=== PATIENT | male | born 1960 | race Caucasian/White ===

== ENCOUNTER 2017-07-24 18:01 | Observation (INO) | payer MEDICAID ==
--- NOTE | 2017-07-24 18:06 | EDPHY ---
H & P Source: Patient Exam Limitations: No limitations - Medical/Surgical History Hx Asthma: No Hx Chronic Respiratory Disease: Yes Hx Diabetes: No Hx Cardiac Disease: No Hx Renal Disease: No Hx Cirrhosis: No Hx Alcoholism: No Hx HIV/AIDS: No Hx Splenectomy or Spleen Trauma: No Other PMH: CHRONIC pain Time Seen by Provider: 07/24/17 18:05 HPI/ROS: HPI: This is a 56-year-old male who presents with Chief Complaint: GI issues Location: Quality: Duration: Signs and Symptoms: no fever, no nausea, no vomiting, no hematemesis, no blood in stool, no abdominal bloating, no diarrhea, no back pain, no urinary symptoms , no testicular/groin pain, no indigestion, no chest pain, no shortness of breath Timing: Severity: Context: Modifying Factors: Comment: ROS: see HPI Constitutional: No fever, no chills, no weight loss Eyes: No blurred vision Respiratory: No shortness of breath, no cough Cardiovascular: No chest pain, no palpitations Gastrointestinal: No nausea, no vomiting, no diarrhea, no hematemesis, no blood in stool Genitourinary: No dysuria, no blood in urine Extremities: No myalgias, no edema Neurologic: No weakness, no numbness Skin: No rashes, no petechiae Hematologic: No bruising, no bleeding MEDICAL/SURGICAL/SOCIAL HISTORY: Medical history: Chronic pain. Does not take any regular medications. Surgical history: Denies Social history: CONSTITUTIONAL: awake and alert, no obvious distress HEENT: Atraumatic and normocephalic, PERRL, EOMI. Tympanic membranes clear. Oropharynx clear, no exudate and moist pink mucosa. Airway patent. No lymphadenopathy. No meningismus. Cardiovascular: Normal S1/S2, regular rate, regular rhythm, without murmur rub or gallop. PULMONARY/CHEST: Symmetrical and nontender. Clear to auscultation bilaterally. Good air movement. No accessory muscle usage. ABDOMEN: Soft, nondistended, nontender, no rebound, no guarding, no peritoneal signs, no masses or organomegaly. No CVAT. EXTREMITIES: 2/2 pulses, strength 5/5, no deformities, no clubbing, no cyanosis or edema. NEUROLOGICAL: no focal neuro deficits. GCS 15. SKIN: Warm and dry, no erythema. no rash. Good capillary refill. ([place]) Constitutional: Initial Vital Signs Heart Rate 53 L 07/24/17 18:06 Respiratory Rate 30 H 07/24/17 18:06 Blood Pressure 139/119 H 07/24/17 18:06 O2 Sat (%) 92 07/24/17 18:06 O2 Delivery Mode Nasal Cannula Allergies/Adverse Reactions: No Known Allergies Allergy (Unverified 07/06/14 13:05) Home Medications: Medication Instructions Recorded Ibuprofen [Motrin (*)] 800 mg PO Q6 #15 tab 07/06/14 Departure - Departure Condition: Good
--- NOTE | 2017-07-24 18:17 | CPEKG ---
Heart Rate: 51 RR Interval: 1176 P-R Interval: 172 QRSD Interval: 92 QT Interval: 452 QTC Interval: 417 P [place]: 65 QRS [place]: 56 T Wave [place]: 31 EKG Severity - BORDERLINE ECG - EKG Impression: SINUS BRADYCARDIA EKG Impression: BORDERLINE INFERIOR Q WAVES Electronically Signed By: Aris Li 24-Jul-2017 20:53:31
--- NOTE | 2017-07-24 18:29 | EDPHY ---
H & P Time Seen by Provider: 07/24/17 18:05 HPI/ROS: Chief complaint. Abdominal pain, chills, vomiting after colonoscopy HPI. 56-year-old male had colonoscopy today. During the colonoscopy the patient started vomiting and having chills. He had near syncope. He was brought over from GI suite. Patient denies chest discomfort or trouble breathing but tells me he is cold. He is vomiting in the emergency department. He tells me he has diffuse abdominal pain. There were some biopsies taken but not electric cautery used during the colonoscopy. Patient tells me he has similar episodes frequently in which he cannot control his temperature. He takes hot showers at this point ROS Constitutional. Chills Eyes. no problems with vision ENT. no sore throat, no nasal drainage Cardiovascular. no chest pain Respiratory. no shortness of breath, no cough Abdominal. Abdominal pain and vomiting . no problems urinating MS. no calf pain/swelling, no neck/back pain, no joint pain Skin. no rash; sweating Lymph. no swollen glands Neuro. Near syncope Past Medical/Surgical History: Chronic pain, possible cyclic vomiting Social History: Single, daily smoker, no alcohol Smoking Status: Current some day smoker Physical Exam: General Appearance: Alert well-developed male moderate distress profusely sweating vital signs significant for heart rate of 53 and blood pressure 139/119 Eyes: Pupils equal and round no pallor or injection. ENT, Mouth: Mucous membranes are moist. Respiratory: There are no retractions, lungs are clear to auscultation. Cardiovascular: Regular rate and rhythm. Gastrointestinal: Abdomen is soft and diffusely tender. Normal bowel sounds Neurological: Awake and alert, sensory and motor exams grossly normal. Skin: Diaphoresis Musculoskeletal: Neck is supple nontender. Extremities symmetrical, full range of motion. Psychiatric: Patient is oriented X 3, there is no agitation. Constitutional: Initial Vital Signs Heart Rate 53 L 07/24/17 18:06 Respiratory Rate 30 H 18 18:06 Blood Pressure 139/119 H 07/24/17 18:06 O2 Sat (%) 92 07/24/17 18:06 O2 Delivery Mode Nasal Cannula O2 (L/minute) 1 Allergies/Adverse Reactions: No Known Allergies Allergy (Unverified 07/06/14 13:05) Home Medications: Medication Instructions Recorded Ibuprofen [Motrin (*)] 800 mg PO Q6 #15 tab 03/30/15 Medical Decision Making - Diagnostics EKG Interpretation: EKG interpreted by me shows sinus bradycardia normal interval and axis. QRS is normal there is no significant ST elevation or depression. No arrhythmia. The rate is 51 Imaging Results: Imaging Impressions Abdomen CT 07/24/17 18:16 Impression: 1. Incidental internal hernia involving small bowel extending underneath the hepatic flexure to the right upper quadrant anteriorly without obstruction. 2. No CT evidence of appendicitis, abscess or bowel obstruction. 3. Incidental umbilical hernia containing omental fat. Findings discussed with Aris Li M.D. at 19:17 hour, 07/24/2017. Chest X-Ray 07/24/17 18:16 Impression: 1. Poor inspiration with compressive changes at the lung bases. Dependent edema is felt to be less likely. Chest x-ray interpreted by me shows poor inspiration. No obvious pneumonia. No evidence for free air CT abdomen and pelvis with IV contrast shows no evidence of perforation. It is reviewed by me and discussed with Dr. Bolivar Procedures: IV normal saline, monitor I-STAT shows a creatinine 1.4 Reglan and Benadryl for nausea vomiting ED Course/Re-evaluation: Serial evaluations patient is stable. He no longer having any nausea or vomiting. He continues to have chills and some sweating. Patient and I discussed imaging and lab results. We discussed treatment plan including recommendation for admission. He expresses understanding and agreement I consulted and discussed the case with Dr. Cowart, gastroenterology who will see the patient in the hospital for consultation I consulted discussed the case with , hospitalist, who agrees to the admission Differential Diagnosis: I suspect the patient has cyclic vomiting syndrome. I considered perforation during the colonoscopy biopsies. I considered acute IN. I considered electrolyte abnormalities. - Data Points Laboratory Results: Laboratory Results 07/24/17 18:29 07/24/17 18:29 07/24/17 07/24/17 07/24/17 18:45 18:33 18:29 WBC RBC Hgb POC Hgb 16.7 gm/dL gm/dL (13.7-17.5) Hct POC Hct 49 % % (40-51) MCV MCH MCHC RDW Plt Count MPV Neut % (Auto) Lymph % (Auto) Trinity % (Auto) Eos % (Auto) Baso % (Auto) Nucleat RBC Rel Count Absolute Neuts (auto) Absolute Lymphs (auto) Absolute Monos (auto) Absolute Eos (auto) Absolute Basos (auto) Absolute Nucleated RBC Immature Gran % Immature Gran # VBG Lactic Acid 1.7 mmol/L mmol/L (0.7-2.1) POC Sodium 141 mEq/L mEq/L (135-145) Sodium 136 mEq/L mEq/L (135-145) POC Potassium 3.8 mEq/L mEq/L (3.3-5.0) Potassium 4.3 mEq/L mEq/L (3.5-5.2) POC Chloride 101 mEq/L mEq/L (97-110) Chloride 101 mEq/L mEq/L (97-110) Carbon Dioxide 24 mEq/l mEq/l (22-31) Anion Gap 11 mEq/L mEq/L (8-16) POC BUN 14 mg/dL mg/dL (7-23) BUN 14 mg/dL mg/dL (7-23) Creatinine 1.2 mg/dL mg/dL (0.7-1.3) POC Creatinine 1.4 mg/dL H mg/dL (0.7-1.3) Estimated GFR > 60 Glucose 117 mg/dL H mg/dL (70-100) POC Glucose 129 mg/dL H mg/dL (70-100) Calcium 9.7 mg/dL mg/dL (8.5-10.4) Troponin I < 0.012 ng/mL ng/mL (0.000-0.034) Lipase 37 IU/L IU/L (23-300) 07/24/17 18:29 WBC 11.52 10^3/uL H 10^3/uL (3.80-9.50) RBC 5.28 10^6/uL 10^6/uL (4.40-6.38) Hgb 16.6 g/dL g/dL (13.7-17.5) POC Hgb Hct 46.5 % % (40.0-51.0) POC Hct MCV 88.1 fL fL (81.5-99.8) MCH 31.4 pg pg (27.9-34.1) MCHC 35.7 g/dL g/dL (32.4-36.7) RDW 12.8 % % (11.5-15.2) Plt Count 296 10^3/uL 10^3/uL (150-400) MPV 10.8 fL fL (8.7-11.7) Neut % (Auto) 79.9 % H % (39.3-74.2) Lymph % (Auto) 12.9 % L % (15.0-45.0) Trinity % (Auto) 6.3 % % (4.5-13.0) Eos % (Auto) 0.3 % L % (0.6-7.6) Baso % (Auto) 0.3 % % (0.3-1.7) Nucleat RBC Rel Count 0.0 % % (0.0-0.2) Absolute Neuts (auto) 9.20 10^3/uL H 10^3/uL (1.70-6.50) Absolute Lymphs (auto) 1.49 10^3/uL 10^3/uL (1.00-3.00) Absolute Monos (auto) 0.73 10^3/uL 10^3/uL (0.30-0.80) Absolute Eos (auto) 0.04 10^3/uL 10^3/uL (0.03-0.40) Absolute Basos (auto) 0.03 10^3/uL 10^3/uL (0.02-0.10) Absolute Nucleated RBC 0.00 10^3/uL 10^3/uL (0-0.01) Immature Gran % 0.3 % % (0.0-1.1) Immature Gran # 0.03 10^3/uL 10^3/uL (0.00-0.10) VBG Lactic Acid POC Sodium Sodium POC Potassium Potassium POC Chloride Chloride Carbon Dioxide Anion Gap POC BUN BUN Creatinine POC Creatinine Estimated GFR Glucose POC Glucose Calcium Troponin I Lipase Medications Given: Discontinued Medications Diphenhydramine HCl (Benadryl Injection) 25 mg IVP EDNOW ONE Stop: 07/24/17 18:44 Last Admin: 07/24/17 19:02 Dose: 25 mg Metoclopramide HCl (Reglan Injection) 10 mg IVP EDNOW ONE Stop: 07/24/17 18:44 Last Admin: 07/24/17 19:02 Dose: 10 mg Point of Care Test Results: 07/24/17 18:33 POC Sodium 141 POC Potassium 3.8 POC Chloride 101 POC BUN 14 POC Creatinine 1.4 H POC Glucose 129 H Departure - Departure Disposition: [facility] Inpatient Acute Clinical Impression: Near syncope Condition: Good
[2017-07-24] MEDS ORDERED: METOCLOPRAMIDE 10 MG/2 ML VIAL IVP ONE (18:43)
[2017-07-24] MEDS ORDERED: IOPAMIDOL (ISOVUE-300) 100 ML BTL ONE (18:49)
[2017-07-24 18:50] LABS: PLATELET COUNT 296 10^3/uL (150-400)
[2017-07-24] MEDS ORDERED: ACETAMINOPHEN 325 MG TAB PO PRN (23:04)
[2017-07-24] MEDS ORDERED: METOCLOPRAMIDE 10 MG/2 ML VIAL IVP PRN (23:04)
[2017-07-24] MEDS ORDERED: NS 1,000 ML IV SCH (23:15)
[2017-07-25] MEDS: SIMETHICONE 80 MG TAB CHEW PO PRN ×3 (00:57→13:45)
--- NOTE | 2017-07-25 01:18 | GHP ---
[f rep st] HISTORY AND PHYSICAL DATE OF ADMISSION: 07/24/2017 SOURCE: Patient provides history, appears reliable. EMR reviewed and case discussed with accepting provider. CHIEF COMPLAINT: Abdominal pain nausea, vomiting, chills and near syncope. HISTORY OF PRESENT ILLNESS: This is a pleasant 56-year-old gentleman with past medical history significant for depression, chronic pain, chronic marijuana use , who presents to the emergency department following colonoscopy after he underwent today. The patient developed some fevers, chills, nausea, vomiting, and near syncopal episode. Patient denies any chest pain or shortness of breath. He had some abdominal distention. He continues to have some cramping diffusely, belching, is passing gas. The patient is reporting since his procedure, sweats, hot chills and wants to take warm shower. The patient denies any recent illnesses. He did complete his prep. He denies any melena, hematochezia, or hematemesis. In the emergency department, patient did undergo CT abdomen and pelvis, which was negative for any evidence of perforation. There was incidental internal hernia without obstruction under the hepatic flexure in the right upper quadrant. No evidence of appendicitis, abscess or bowel obstruction. Incidental umbilical hernia also noted containing omental fat. The patient has continued to have some abdominal cramping, distention, passing gas and belching. He denies any lightheadedness. No further presyncopal episodes. REVIEW OF SYSTEMS: GENERAL: Patient with fevers, chills, sweats as noted above. SKIN: No rashes or sores. ENT: Patient denies any rhinorrhea, congestion, sore throat. EYES: No acute changes in vision or ocular pain. CARDIOVASCULAR: No chest pain or palpitations. RESPIRATORY: No shortness of breath or cough. GI: Abdominal distention, nausea with resolved vomiting, abdominal cramping pain as noted per HPI. : No dysuria or hematuria. MUSCULOSKELETAL: The patient without any complaints of joint pain, myalgias. NEURO: Patient denies any headache. No numbness, tingling. No focal deficits. PSYCH: Patient with history of depression with variable mood but denies any SI or HI. Remainder of review of systems negative except as noted above. ALLERGIES: No known drug allergies. HOME MEDICATIONS: 1. Remeron 50 mg at h.s. 2. Naproxen p.r.n. PAST MEDICAL HISTORY: Significant for chronic pain, depression. Chronic marijuana use. PAST SURGICAL HISTORY: Significant only for colonoscopy on date of admission. FAMILY HISTORY: Father with diabetes type 2. No abdominal or GI issues. SOCIAL HISTORY: The patient denies any use of tobacco, alcohol. He does use marijuana approximately 200-300 mg daily. Last use day prior to arrival for colonoscopy. CODE STATUS: Full at this time. The patient does report he does have a DNR, but desires to be a full code today. PHYSICAL EXAMINATION: VITAL SIGNS: Upon arrival to the emergency department, blood pressure is 139/119, heart rate 53, respiratory rate 30, O2 saturation 92 % on nasal cannula. Current vitals: Blood pressure 162/92, heart rate 58, respiratory rate 22, O2 saturation 99% on room air, temperature 36.6. GENERAL: No acute distress. The patient does have intermittent complaints of cramping in his abdomen. HEAD: Normocephalic, atraumatic. EYES: Extraocular muscles grossly intact. Pupils equal, round. Decreased reactivity to light bilaterally and symmetric. No scleral icterus or conjunctival injection. ENT: Mucous membranes are moist. Dentition intact. No oropharyngeal erythema or exudates. NECK: Supple. Trachea midline. CARDIOVASCULAR: Slightly bradycardic with regular rhythm. No murmurs, rubs, or gallops appreciated. RESPIRATORY: Unlabored breathing except with complaints of cramping episode. Lungs are clear to auscultation bilaterally. No wheezes, rales, or rhonchi appreciated. ABDOMEN: Slightly distended, soft, mildly and diffusely tender to palpation superficially. Hypoactive bowel sounds, but are present in all quadrants. : No suprapubic tenderness to palpation. No Patton catheter in place. MUSCULOSKELETAL: Patient moves all extremities. Strength grossly intact. NEURO: Grossly nonfocal. No facial drooping. PSYCH: The patient slightly anxious, complaining of pain. Otherwise, thought process, content and questions are appropriate. LABORATORY STUDIES: 1. WBC 11.52, H and H is 16.6 and 46.5, MCV of 88.1, platelet count is 296, no bands. 2. Lactic acid is 1.7. 3. Sodium 136, potassium 4.3, chloride is 101, CO2 24, anion gap is 11, creatinine is 1.2, GFR is greater than 60, glucose 117, calcium 9.7. Troponin is negative. Lipase is 37. IMAGING STUDIES: CT abdomen pelvis as noted above in HPI. Chest x-ray image report reviewed also, noting mild compressive changes suspected in the lung bases. No focal consolidations or effusions. EKG reviewed myself, shows sinus bradycardia, borderline inferior Q-waves. QTc is 417. No acute ST changes. ASSESSMENT AND PLAN: Pleasant 56-year-old gentleman with a history of chronic pain, chronic marijuana use and depression who presents to the emergency department today following colonoscopy with complaints of abdominal pain, nausea , vomiting, presyncope, and fevers and chills. 1. Presyncope. The patient is complaining of severe abdominal pain, distention , cramping, likely related to recent colonoscopy. Patient without any evidence of perforation or other acute findings on CT abdomen and pelvis. Supportive care at this time, simethicone as needed. The patient reports he is passing quite a bit of gas and belching. Will try to avoid narcotics. 2. Nausea, vomiting. Patient without any episodes since arrival to the floor. Patient with Zofran, Reglan available as needed. He is tolerating clears at this time and will continue to advance diet as tolerated. 3. Reported fevers, chills, and sweats. The patient has been asking to go for frequent showers. He does take high dose of marijuana on a daily basis. He denies any other illicit drug use and I suspect that he is likely withdrawing. Supportive care at this time. Titrate down if tolerated will be recommended during his hospital stay. 4. Mildly elevated white count, 11.52, likely related to patient's recent colonoscopy, nausea, vomiting. Continue with supportive care. Patient is declining intravenous fluids at this time, but he is tolerating oral hydration quite well. I did ask the patient regarding thyroid function testing plane of intermittent hot and cold sensation. He reports he recently had evaluation in this found to be normal. 5. Elevated blood pressures without history of hypertension-suspect this is likely elevated patient's acute pain. Will try to avoid narcotics at this time secondary to GI symptoms and potential for exacerbation. Hydralazine will be made available for persistent symptoms. 6. Fluid, electrolyte, nutrition. Patient declined intravenous fluid, as above. Electrolytes will be monitored and replaced if needed. Advancing diet as tolerated to regular. 7. Prophylaxis. Sequential compression devices, holding anticoagulation. Ambulation will be encouraged. 8. Code status. At this time, is full per patient. 9. Disposition: The patient has been admitted to observation status on the medical floor. Continue with supportive measures as noted above. Anticipate patient will be able to discharge later in the morning. /[id number]/MODL MTDD
[2017-07-25 04:38] LABS: PLATELET COUNT 279 10^3/uL (150-400)
[2017-07-25] MEDS: ONDANSETRON 4 MG/2 ML VIAL IVP PRN ×2 (09:23→15:25)
[2017-07-25 11:31] VITALS: BP 157/86
--- NOTE | 2017-07-25 14:25 | HOSPPROG ---
Hospitalist Progress Note Assessment/Plan: 6 yo M w post colonoscopy nausea and vomiting, possibility of cannabis induced hyperemesis n/vom: improved ?perf: not seen on colonoscopy dispo: home today Subjective: case d/w Dr Cowart. took a hot shower Objective: Vital Signs Temp Pulse Resp BP Pulse Ox 36.7 C 56 L 17 157/86 H 99 07/25/17 11:29 07/25/17 11:29 07/25/17 11:29 07/25/17 11:29 07/25/17 11:29 Laboratory Results 07/25/17 04:29 07/25/17 04:29 07/24/17 07/25/17 07/26/17 05:59 05:59 05:59 Intake Total 1300 1000 Output Total 600 Balance 700 1000 - Physical Exam Constitutional: no apparent distress, appears nourished Eyes: PERRL, anicteric sclera Ears, Nose, Mouth, Throat: moist mucous membranes, hearing normal, ears appear normal Cardiovascular: regular rate and rhythym, no murmur, rub, or gallop Respiratory: no respiratory distress, no rales or rhonchi Gastrointestinal: normoactive bowel sounds, soft, non-tender abdomen Genitourinary: no bladder fullness, No landeros in urethra Skin: warm, normal color Musculoskeletal: full muscle strength, no muscle tenderness Neurologic: AAOx3, sensation intact bilaterally Psychiatric: interacting appropriately ICD10 Worksheet Patient Problems: Problems Problem Status Onset Near syncope Acute
--- NOTE | 2017-07-25 16:52 | GDS ---
[f rep st] DISCHARGE SUMMARY DISCHARGE DIAGNOSES: 1. Colon polyp, not resected. 2. Nausea and vomiting. 3. Possible cannabis hyperemesis syndrome versus cyclical vomiting. Please see admission history and physical by Dr. Kylah Celis. The patient presented with nausea and vomiting that occurred during colonoscopy. He endorsed that he had taken some THC containing produc ts prior to that. He has had similar presentation of nausea and vomiting in the setting of THC use w hich is for him somewhat frequent, he also takes hot showers during the day. CT was negative for per foration. The patient is feeling well and eating well on the first hospital day and plans for discha rge home. He has outpatient followup with Dr. Johnathan Cowart, who saw him in followup to re-evaluate hi s polyp. He also notes that he was given prescriptions for Protonix, given reflux like symptoms with vomiting, as well as Phenergan for nausea. /[id number]/MODL
[2017-07-25] MEDS ORDERED: MIRTAZAPINE 15 MG TAB PO SCH (21:00)
== END 2017-07-25 16:36 | disposition home or self-care (01) ==
LOC: INTOOBSV 19:31 → F1N 20:49
PROVIDERS: ADMIT Internal Medicine; ATTEND Internal Medicine
DX: R55 Syncope and collapse (principal); R11.2 Nausea with vomiting, unspecified; R10.9 Unspecified abdominal pain; F12.10 Cannabis abuse, uncomplicated; R03.0 Elevated blood-pressure reading, without diagnosis of hypertension; D72.829 Elevated white blood cell count, unspecified; K63.5 Polyp of colon; G89.29 Other chronic pain; F17.210 Nicotine dependence, cigarettes, uncomplicated; K42.9 Umbilical hernia without obstruction or gangrene; F32.9 Major depressive disorder, single episode, unspecified; Z98.890 Other specified postprocedural states
CPT/HCPCS: 71045; 74177; 93005; 96374; 96375; 99285; G0378; 82947-QW; J1200; J2405; J2765; Q9967

== ENCOUNTER → 2017-08-30 | Outpatient (CLI) | payer MEDICAID | LOC: FIMAGING 15:02 | DX: M50.31 Other cervical disc degeneration, high cervical region (principal); M50.321 Other cervical disc degeneration at C4-C5 level; M50.322 Other cervical disc degeneration at C5-C6 level; M50.323 Other cervical disc degeneration at C6-C7 level; M50.33 Other cervical disc degeneration, cervicothoracic region; M12.88 Other specific arthropathies, not elsewhere classified, other specified site; M48.02 Spinal stenosis, cervical region; M99.71 Connective tissue and disc stenosis of intervertebral foramina of cervical region ==

== ENCOUNTER 2018-02-13 07:37 | Day surgery (SDC) | payer MEDICAID ==
[2018-02-13] MEDS ORDERED: LR 1,000 ML IV ONE (07:48)
--- NOTE | 2018-02-13 08:18 | PDANEPAE ---
ANE Past Medical History - Cardiovascular History Hx Hypertension: No Hx Arrhythmias: No Hx Chest Pain: No Hx Coronary Artery / Peripheral Vascular Disease: No Hx CHF / Valvular Disease: No Hx Palpitations: No - Pulmonary History Hx COPD: No Hx Asthma/Reactive Airway Disease: No Hx Recent Upper Respiratory Infection: No Hx Oxygen in Use at Home: No Hx Sleep Apnea: No Sleep Apnea Screening Result - Last Documented: Positive Pulmonary History Comment: UBALDO triggers. states has been told he has early stages of COPD but no treatment or actual diagnosis - Neurologic History Hx Cerebrovascular Accident: No Hx Seizures: No Hx Dementia: No Neurologic History Comment: intermittent numbness to right hand, left side of neck, lower part of head - Endocrine History Hx Diabetes: No Hypothyroid: No Hyperthyroid: No Obesity: no - Renal History Hx Renal Disorders: Yes Renal History Comment: enlarged prostate - Liver History Hx Hepatic Disorders: No - Neurological & Psychiatric Hx Hx Neurological and Psychiatric Disorders: Yes Neurological / Psychiatric History Comment: depression. anxiety. sleep disorder. uses marijuana daily for about 42 years - Cancer History Hx Cancer: No - Congenital Disorder History Hx Congenital Disorders: No - GI History Hx Gastrointestinal Disorders: Yes Gastrointestinal History Comment: GERD. frequent nausea in the AM - Other Health History Other Health History: wears glasses for reading. lower right back tooth missing. eczema with stress. intermittent low back pain - Chronic Pain History Chronic Pain: Yes (low back pain) - Surgical History Prior Surgeries: left ankle surgery. right knee surgery. colonoscopies/EGD's. wisdom tooth extraction ANE Review of Systems Review of Systems: - Exercise capacity METS (RN): 4 METS ANE Patient History - Allergies Allergies/Adverse Reactions: No Known Allergies Allergy (Verified 02/04/18 14:20) - Home Medications Home Medications: Mirtazapine HS 07/24/17 [Last Taken 02/08/18] Ranitidine HCl 02/04/18 [Last Taken 02/11/18] - NPO status NPO Since - Liquids (Date): 02/12/18 NPO Since - Liquids (Time): 00:00 NPO Since - Solids (Date): 02/12/18 NPO Since - Solids (Time): 08:50 - Smoking Hx Smoking Status: Current some day smoker - Family Anes Hx Family Hx Anesthesia Complications: none ANE Labs/Vital Signs - Vital Signs Blood Pressure: 113/79 Heart Rate: 70 Respiratory Rate: 14 O2 Sat (%): 92 Height: 193.04 cm Weight: 99.79 kg ANE Physical Exam - Airway Neck exam: FROM Mallampati Score: Class 1 Mouth exam: normal dental/mouth exam - Pulmonary Pulmonary: no respiratory distress - Cardiovascular Cardiovascular: regular rate and rhythym - ASA Status ASA Status: II ANE Anesthesia Plan Anesthesia Plan: GA with mask
[2018-02-13] MEDS ORDERED: PROPOFOL/EMULSION 500 MG/50 ML BOTTLE IV ONE (08:45)
[2018-02-13] MEDS ORDERED: LIDOCAINE 2% 5 ML SDV ONE (08:46)
[2018-02-13] MEDS ORDERED: ONDANSETRON 4 MG/2 ML VIAL ONE (08:46)
[2018-02-13] MEDS ORDERED: DEXAMETHASONE 4 MG/ML VIAL ONE (08:46)
--- NOTE | 2018-02-13 08:46 | PDGENHP ---
History and Physical - Chief Complaint GERD, hx of polyps - History of Present Illness Healthy 57 y/o with recent colonoscopy where multiple polyps found and exam was incomplete. Also reports 3-4x/week GERD symptoms w/o dysphagia. No weight loss. No blood in stool. History Information - Allergies/Home Medication List Allergies/Adverse Reactions: No Known Allergies Allergy (Verified 02/04/18 14:20) Home Medications: Mirtazapine HS 07/24/17 [Last Taken 02/08/18] Ranitidine HCl 02/04/18 [Last Taken 02/11/18] I have personally reviewed and updated: family history, medical history, social history, surgical history - Past Medical History no pertinent PMH - Surgical History Reports: no pertinent surgical hx - Social History Smoking Status: Current some day smoker Alcohol Use: Occasionally Drug Use: Marijuana Review of Systems Review of Systems: ROS: 10pt was reviewed & negative except for what was stated in HPI & below Physical Exam Physical Exam: Temp Pulse Resp BP Pulse Ox 36.7 C 70 14 113/79 92 02/13/18 08:01 02/13/18 08:17 02/13/18 08:17 02/13/18 08:17 02/13/18 08:17 Constitutional: no apparent distress Eyes: PERRL Ears, Nose, Mouth, Throat: moist mucous membranes Cardiovascular: regular rate and rhythym Respiratory: no respiratory distress Gastrointestinal: normoactive bowel sounds Skin: warm Musculoskeletal: full muscle strength Neurologic: AAOx3 Psychiatric: interacting appropriately Assessment & Plan Assessment: 1. GERD 2. Colon polyp surveillance Plan: 1. EGD 2. Colonoscopy
--- NOTE | 2018-02-13 09:12 | GIREPORT ---
Formerly [facility] Surgical Services - Endoscopy Department Patient Name: Louis Guzman Procedure Date: 02/13/2018 8:50 AM Patient Type: Outpatient Attending MD/ ER Physician: Adri Hazel MD Procedure: Upper GI endoscopy Indications: Epigastric abdominal pain, Functional Dyspepsia, Heartburn Providers: Adri Hazel MD Medicines: Sedation Required Anesthesia Staff Assistance Complications: No immediate complications. Description of Procedure: After obtaining informed consent, the endoscope was passed under direct vision. Throughout the procedure, the patient's blood pressure, pulse, and oxygen saturations were monitored continuously. The Endoscope was intro duced through the mouth, and advanced to the third part of duodenum. The uppe r GI endoscopy was accomplished without difficulty. The patient tolerated th e procedure well. Findings: LA Grade A (one or more mucosal breaks less than 5 mm, not extending be tween tops of 2 mucosal folds) esophagitis with no bleeding was found at the gastroesophageal junction. Biopsies were taken with a cold forceps for histology. Diffuse mild inflammation characterized by congestion (edema) and eryth pedro was found in the entire examined stomach. Biopsies were taken with a co ld forceps for histology. The examined duodenum was normal. Biopsies for histology were taken wit h a cold forceps for evaluation of celiac disease. Estimated Blood Loss: Estimated blood loss: none. Post Op Diagnosis: - LA Grade A reflux esophagitis. Biopsied. - Gastritis. Biopsied. - Normal examined duodenum. Biopsied. Recommendation: - Written discharge instructions were provided to the patient. - The signs and symptoms of potential delayed complications were discus sed with the patient. - Patient has a contact number available for emergencies. - Return to normal activities tomorrow. - Resume previous diet. - Continue present medications. - Use a proton pump inhibitor PO daily. - Await pathology results. Attending Participation: I personally performed the entire procedure. Adri Hazel MD Adri Hazel MD 02/13/2018 9:11:55 AM This report has been signed electronicallyAdri Hazel MD Number of Addenda: 0 Note Initiated On: 02/13/2018 8:50 AM [email or web address]
[2018-02-13] MEDS ORDERED: PROPOFOL 200 MG/20 ML VIAL ONE (09:33)
[2018-02-13] MEDS ORDERED: MIDAZOLAM 2 MG/2 ML VIAL ONE (09:34)
[2018-02-13] MEDS ORDERED: ROCURONIUM 50 MG/5 ML VIAL ONE (09:38)
--- NOTE | 2018-02-13 09:49 | GIREPORT ---
[facility] Surgical Services - Endoscopy Department Patient Name: Louis Guzman Procedure Date: 02/13/2018 8:51 AM Patient Type: Outpatient Attending MD/ ER Physician: Adri Hazel MD Procedure: Colonoscopy Indications: High risk colon cancer surveillance: Personal history of colonic polyps Providers: Adri Hazel MD Medicines: Sedation Required Anesthesia Staff Assistance Complications: No immediate complications. Description of Procedure: After obtaining informed consent, the scope was passed under direct vis ion. Throughout the procedure, the patient's blood pressure, pulse, and oxyg en saturations were monitored continuously. The Colonoscope with irrigatio n channel was introduced through the anus and advanced to the cecum, identified by appendiceal orifice and ileocecal valve. The colonoscopy was performed without difficulty. The patient tolerated the procedure well. The quality of the bowel preparation was good. The ileocecal valve, appendi ceal orifice, and rectum were photographed. Findings: Two sessile polyps were found in the transverse colon. The polyps were 4 to 6 mm in size. These polyps were removed with a cold biopsy forceps. Resection and retrieval were complete. A 10 mm polyp was found in the sigmoid colon. The polyp was semi-pedunculated. The polyp was removed with a hot snare. Resection an d retrieval were complete. The exam was otherwise without abnormality. Estimated Blood Loss: Estimated blood loss: none. Post Op Diagnosis: - Two 4 to 6 mm polyps in the transverse colon, removed with a cold bio psy forceps. Resected and retrieved. - One 10 mm polyp in the sigmoid colon, removed with a hot snare. Resec nany and retrieved. - The examination was otherwise normal. Recommendation: - Written discharge instructions were provided to the patient. - The signs and symptoms of potential delayed complications were discus sed with the patient. - Patient has a contact number available for emergencies. - Return to normal activities tomorrow. - Resume previous diet. - Continue present medications. - Await pathology results. - Repeat colonoscopy for surveillance based on pathology results. Adri Hazel MD Adri Hazel MD 02/13/2018 9:49:30 AM This report has been signed electronicallyAdri Haezl MD Number of Addenda: 0 Note Initiated On: 02/13/2018 8:51 AM Total Procedure Duration Time 0 hours 32 minutes 55 seconds [email or web address]
[2018-02-13] MEDS ORDERED: SUGAMMADEX SODIUM 200 MG/2 ML VIAL IVP ONE (09:53)
[2018-02-13] MEDS ORDERED: NALOXONE HCL 0.4 MG/ML INJ IVP PRN ×2 (10:09→10:10)
[2018-02-13] MEDS ORDERED: PROMETHAZINE HCL 25 MG/ML INJ IVP PRN (10:10)
[2018-02-13] MEDS ORDERED: fentaNYL 100 MCG/2 ML INJ IVP PRN (10:10)
[2018-02-13] MEDS ORDERED: NS 500 ML IV PRN (10:10)
--- NOTE | 2018-02-13 10:10 | POSTANESTH ---
Post Anesthetic Evaluation Cardiovascular Status: Normal, Stable Respiratory Status: Normal, Stable Level of Consciousness/Mental Status: Can Participate in Eval Pain Control: Adequate, Prn Tx Ordered Nausea/Vomiting Control: Adequate, Prn Tx Ordered Complications Possibly Related to Anesthesia: None Noted
[2018-02-13 12:05] VITALS: BP 115/76
== END 2018-02-13 12:55 | disposition home or self-care (01) ==
LOC: FSGY 07:37
PROVIDERS: ATTEND Internal Medicine Gastroenterology
DX: D12.3 Benign neoplasm of transverse colon (principal); D12.5 Benign neoplasm of sigmoid colon; K21.0 Gastro-esophageal reflux disease with esophagitis; Z86.010 Personal history of colon polyps; F17.210 Nicotine dependence, cigarettes, uncomplicated
CPT/HCPCS: J1100; J2250; J2405; J2704